=== PATIENT | male | born 1955 | race Caucasian/White ===

== ENCOUNTER 2022-09-07 18:10 | Inpatient (IN) | payer OTHER ==
[~2022-09-07] VITALS: Ht 182.9 cm; Wt 123.0 kg
[~2022-09-07 18:10] MED LIST: AMLO5 PO; ASPI81CH PO; ATEN100 PO; ATOR40TA PO; CHOL10002 PO; CLOP75 PO; COLE625 PO; Cardizem LA360 MG PO; DILTIAZEM 24HR360 MG PO; DOXA1 PO; FISH1000 PO; FURO40 PO; LOSA50 PO; LOSARTAN POTAS100 MG PO; METO25ER PO; PANT40 PO; RANI150; RANI150 PO; XARELTO20 MG PO; ZESTRIL40 MG PO; Zestril40 MG PO
[2022-09-07 18:36] LABS: BASOPHILS ABSOLUTE AUTO 0.08 K/mm3 (0.00-0.23); BASOPHILS PERCENT AUTO 0 % (0-2); EOSINOPHILS PERCENT AUTO 0 % (0-6); Hematocrit 36.1 % (37.0-53.0); Hemoglobin 11.7 g/dL (13.5-17.5); IMMATURE GRAN ABSOLUTE AUTO 0.13 K/mm3 (0.00-0.10); IMMATURE GRAN PERCENT AUTO 1 % (0-1); LYMPHOCYTES ABSOLUTE AUTO 4.08 K/mm3 (0.84-5.20); LYMPHOCYTES PERCENT AUTO 18 % (21-46); MONOCYTES ABSOLUTE AUTO 0.83 K/mm3 (0.16-1.47); MONOCYTES PERCENT AUTO 4 % (4-13); Mean Corpuscular HGB 27.7 pg (26.0-34.0); Mean Corpuscular HGB Conc 32.4 g/dL (31.5-36.5); Mean Corpuscular Volume 85 fL (80-100); Mean Platelet Volume 9.9 fL (9.1-12.4); NEUTROPHILS PERCENT AUTO 77 % (41-73); Platelet Count 353 K/mm3 (150-400); RDW Coefficient Variation 13.9 % (11.7-14.2); RDW Standard Deviation 43.1 fL (35.1-46.3); Red Blood Cell Count 4.23 M/mm3 (4.30-5.90); White Blood Cell Count 22.32 K/mm3 (4.00-11.30)
[2022-09-07] MEDS ORDERED: EUTHYROX25 MC1 PO (18:43)
[2022-09-07] MEDS ORDERED: METO100ER PO (18:44)
[2022-09-07] MEDS ORDERED: NEURONTIN300 MG PO (18:44)
[2022-09-07] MEDS ORDERED: METFORMIN HCL500 M2 PO (18:45)
[2022-09-07 19:21] LABS: Albumin, Blood 2.5 g/dL (3.4-5.0); Albumin/Globulin Ratio 0.6 (0.8-1.8); Bilirubin, Total 0.8 mg/dL (0.1-1.0); Bun/Creatinine Ratio 24.4 (12.0-20.0); Calcium, Blood 9.5 mg/dL (8.5-10.1); Creatinine, Blood 2.09 mg/dL (0.60-1.20); Globulin, Blood 4.4 g/dL (2.2-4.0); Potassium, Blood 4.3 mmol/L (3.5-5.5); Total Protein, Blood 6.9 g/dL (6.4-8.2)
--- NOTE | 2022-09-07 23:39 | NUR ---
ADMIT ARRIVED TO UNIT WITH SPOUSE AND SON AT BEDSIDE. PT ALERT, ORIENTED, AND PLEASANT. USED THE RESTROOM AND HAD X1 UNMEASURED VOID. WAS AMBULATORY INDEPENDENTLY, BUT DID REPORT SOME INTERMITTENT DIZZYNESS. EDUCATED PT TO USE CALL LIGHT WHEN OOB NEXT TO PREVENT FALLING. ORIENTED TO CALL LIGHT. PT DENIES PAIN OR ANY COMPLAINTS AT THIS TIME. NPO AND IVF INFUSING PER ORDERS. AFIB AT 100 PER DIRECTOR OF AGRICULTURE. VSS. CALL LIGHT WITHIN REACH. WILL CONT TO MONITOR.
[2022-09-08 01:48] LABS: Source, Urine Clean Catch
[2022-09-08 01:53] LABS: Bilirubin, Urine Neg (Neg); Blood, Urine Neg (Neg); Glucose Qualitative, Urine Neg (Neg); Ketones, Urine Neg (Neg); Leukocyte Esterase, Urine Neg (Neg); Nitrite, Urine Neg (Neg); Protein, Urine 1+ (Neg); Specific Gravity, Urine 1.015 (1.003-1.022); Urobilinogen, Urine NORM (Normal)
[2022-09-08 01:59] LABS: Color, Urine Yellow (P-Yellow)
[2022-09-08 02:00] LABS: Appearance, Urine Clear (Clear)
[2022-09-08 04:25] LABS: BASOPHILS ABSOLUTE AUTO 0.08 K/mm3 (0.00-0.23); BASOPHILS PERCENT AUTO 0 % (0-2); EOSINOPHILS PERCENT AUTO 1 % (0-6); Hemoglobin 10.6 g/dL (13.5-17.5); IMMATURE GRAN ABSOLUTE AUTO 0.16 K/mm3 (0.00-0.10); IMMATURE GRAN PERCENT AUTO 1 % (0-1); LYMPHOCYTES PERCENT AUTO 12 % (21-46); MONOCYTES ABSOLUTE AUTO 1.48 K/mm3 (0.16-1.47); MONOCYTES PERCENT AUTO 7 % (4-13); Mean Corpuscular HGB 27.9 pg (26.0-34.0); Mean Corpuscular HGB Conc 33.1 g/dL (31.5-36.5); Mean Corpuscular Volume 84 fL (80-100); Mean Platelet Volume 10.3 fL (9.1-12.4); NEUTROPHILS ABSOLUTE AUTO 17.19 K/mm3 (1.96-9.15); NEUTROPHILS PERCENT AUTO 80 % (41-73); Platelet Count 274 K/mm3 (150-400); RDW Coefficient Variation 14.2 % (11.7-14.2); RDW Standard Deviation 43.1 fL (35.1-46.3); White Blood Cell Count 21.61 K/mm3 (4.00-11.30)
--- NOTE | 2022-09-08 04:35 | NUR ---
SHIFT SUMMARY NO ACUTE CHANGES SINCE ADMIT. REMAINS NPO WITH IVF + ABX PER ORDERS. DECLINES ABD PAIN + MEDICATIONS. UP WITH 1 SBA TO BRP. NO BLOODY STOOLS NOTED SINCE ARRIVAL TO UNIT. PT VOIDING. REMAINS IN AFIB PER TELE. GENERAL SURGERY TO CONSULT THIS MORNING. CALL LIGHT WITHIN REACH.
[2022-09-08 04:52] LABS: Albumin, Blood 2.1 g/dL (3.4-5.0); Albumin/Globulin Ratio 0.5 (0.8-1.8); Bilirubin, Total 0.8 mg/dL (0.1-1.0); Bun/Creatinine Ratio 27.1 (12.0-20.0); Calcium, Blood 8.7 mg/dL (8.5-10.1); Creatinine, Blood 1.66 mg/dL (0.60-1.20); Globulin, Blood 4.2 g/dL (2.2-4.0); Potassium, Blood 4.3 mmol/L (3.5-5.5); Total Protein, Blood 6.3 g/dL (6.4-8.2)
[2022-09-08 12:27] LABS: Hematocrit 31.3 % (37.0-53.0); Hemoglobin 10.2 g/dL (13.5-17.5)
[2022-09-08 15:39] LABS: Influenza A, PCR NEGATIVE (NEGATIVE); Influenza B, PCR NEGATIVE (NEGATIVE); Resp Syncytial Virus, PCR NEGATIVE (NEGATIVE); SARS-Cov-2 (COVID-19) PCR, MMC NEGATIVE (NEGATIVE)
--- NOTE | 2022-09-08 17:19 | NUR ---
COBRA TRANSFER PT LEFT WITH [facility] AT APPROXIMATELY 1630 TO [facility]. PT'S FAMILY WAS AT THE BEDSIDE TO SAY GOODBYE. TRANSFER PACKET SENT WITH PATIENT. VSS AT TIME OF TRANSFER. REPORT CALLED TO MARIA ANTONIA CHILDERS RN AT [facility] AT APPROXIMATELY 1640.
== END 2022-09-08 16:30 | disposition short-term general hospital (02) | DRG 872 ==
LOC: ER 18:10 → SURS 21:11
PROVIDERS: Family Medicine; Student in an Organized Health Care Education/Training Program; ADMIT Internal Medicine
DX: A41.9 Sepsis, unspecified organism (principal); K81.0 Acute cholecystitis; N17.9 Acute kidney failure, unspecified; K82.3 Fistula of gallbladder; Z20.822 Contact with and (suspected) exposure to COVID-19; Z28.21 Immunization not carried out because of patient refusal; I48.91 Unspecified atrial fibrillation; I10 Essential (primary) hypertension; E78.5 Hyperlipidemia, unspecified; I25.10 Atherosclerotic heart disease of native coronary artery without angina pectoris; I95.9 Hypotension, unspecified; N40.0 Benign prostatic hyperplasia without lower urinary tract symptoms; K21.9 Gastro-esophageal reflux disease without esophagitis; Z87.01 Personal history of pneumonia (recurrent); Z98.890 Other specified postprocedural states; Z88.6 Allergy status to analgesic agent; Z79.899 Other long term (current) drug therapy
CPT/HCPCS: 0241U; 36415; 74177; 80053; 82947; 83880; 85014; 85018; 85025; 86850; 86900; 86901; 93005; 93010; 96365-59; 96367; 99285-25; A9270; J0295; J2543; J7030; Q9967